=== PATIENT | female | born 1940 | race Caucasian/White ===

== ENCOUNTER 2020-10-03 13:12 | Inpatient (IN) | payer BC, MEDICARE ==
[~2020-10-03] VITALS: Ht 167.6 cm; Wt 67.6 kg
--- NOTE | 2020-10-03 13:12 | NUR ---
PT MARIJA 90 FROM [facility] C/O DIARRHEA STARTED YESTERDAY. PER PT SHE HAD 4 EPISODE OF WATERY STOOL TODAY. PT IS AAOX3, NOT IN RESPIRATORY DISTRESS, HOOKED TO DIVIDER OPERATOR, KEPT RESTED AND COMFORTABLE. WILL CONTINUE TO MONITOR.
--- NOTE | 2020-10-03 13:25 | NUR ---
IV LINE ESTABLISHED BLOOD DRAWN AND SENT TO LAB.
--- NOTE | 2020-10-03 13:27 | NUR ---
SEEN AND EXAMINED BY .
[2020-10-03] MEDS ORDERED: IV NS 0.9% 1,000 ML BAG IV ONE (13:30)
[2020-10-03] MEDS ORDERED: APIX5TAB4 PO (13:40)
[2020-10-03] MEDS ORDERED: QUET25TA PO (13:40)
[2020-10-03] MEDS ORDERED: LEVO50TA8 PO (13:40)
[2020-10-03] MEDS ORDERED: AMIO200T5 PO (13:40)
[2020-10-03 13:54] LABS: BASOPHILS # (AUTO) 0.1 /CMM (0.0-0.2); EOSINOPHILS % (AUTO) 2.5 % (0.0-6.0); HEMATOCRIT 48 % (33-45); HEMOGLOBIN 15.9 g/dL (11.5-14.8); LYMPHOCYTES # (AUTO) 1.6 /CMM (0.8-4.8); LYMPHOCYTES % (AUTO) 20.8 % (20.0-44.0); MEAN CORPUSCULAR HGB CONC 33 g/dl (31.0-36.0); MEAN CORPUSCULAR VOLUME 93 fL (82-100); MONOCYTES # (AUTO) 0.7 /CMM (0.1-1.30); MONOCYTES % (AUTO) 9.7 % (2.0-12.0); PLATELET COUNT (AUTO) 155 /CMM (150-450); RED BLOOD CELL COUNT(AUTO) 5.09 MIL/uL (4.0-5.2); WHITE BLOOD COUNT (AUTO) 7.5 K/uL (4.3-11.0)
--- NOTE | 2020-10-03 13:54 | NUR ---
PT IS WHEELED TO CT SCAN VIA [facility].
[2020-10-03 14:03] LABS: CALCIUM, SERUM 8.9 mg/dL (8.5-10.1); CARBON DIOXIDE 31 mmol/L (21-32); CHLORIDE 105 mmol/L (98-107); CREATININE 1.3 mg/dL (0.6-1.3); GLUCOSE 94 mg/dL (74-106); POTASSIUM 2.9 mmol/L (3.5-5.1); SODIUM SERUM 145 mmol/L (136-145); UREA NITROGEN, BLOOD 26 mg/dL (7-18)
[2020-10-03 14:09] LABS: ALANINE AMINOTRANSFERASE 23 U/L (12-78); ALBUMIN 3.6 g/dL (3.4-5.0); ALKALINE PHOSPHATASE 54 U/L (46-116); ASPARTATE AMINOTRANSFERASE 24 U/L (15-37); BILIRUBIN,DIRECT 0.6 mg/dL (0.0-0.2); BILIRUBIN,TOTAL 1.8 mg/dL (0.2-1.0); LIPASE 171 U/L (73-393); TOTAL PROTEIN, SERUM 6.7 g/dL (6.4-8.2)
[2020-10-03 15:06] LABS: BILIRUBIN,URINE NEGATIVE (NEGATIVE); COLOR,URINE YELLOW (YELLOW); LEUKOCYTE ESTERASE ,URINE NEGATIVE (NEGATIVE); NITRITE, URINE NEGATIVE (NEGATIVE); PH,URINE 6.5 (5.0-8.0); PROTEIN,URINE NEGATIVE (NEGATIVE); UGLUCOSE NEGATIVE (NEGATIVE)
[2020-10-03 15:18] LABS: BACTERIA,URINE None seen /HPF (None Seen); MUCUS,URINE Few /LPF (None Seen); SQUAMOUS EPITHELIAL CELL,UR 0-2 /HPF (None Seen); WBC,URINE 0-2 /HPF (0-3)
--- NOTE | 2020-10-03 15:22 | NUR ---
[facility] CALLED LABORER PRESTRESSED CONCRETE PAGED.
[2020-10-03] MEDS ORDERED: POTASSIUM CHLORIDE 20 MEQ TAB.PRT.SR PO ONE ×2 (15:30→16:30)
--- NOTE | 2020-10-03 16:16 | NUR ---
ROOM 119-2
[2020-10-03] MEDS: POTASSIUM CL. PREMIX PERIPHER. 50 ML IV SCH ×2 (16:25→17:20)
[2020-10-03] MEDS ORDERED: POTASSIUM CL. PREMIX PERIPHER. 100 ML ONE (16:27)
--- NOTE | 2020-10-03 16:50 | NUR ---
REPORT GIVEN TO JOSE MORALES FOR NATIVIDAD. WITH ONGOING POTASSIUM DRIP. TRANSFUSING WELL.
[2020-10-03] MEDS ORDERED: MAG HYDROX/AL HYDROX/SIMETH 30 ML UDC PO PRN (17:30)
[2020-10-03] MEDS ORDERED: ACETAMINOPHEN 325 MG TABLET PO PRN (17:30)
[2020-10-03] MEDS ORDERED: Z GUARD REMEDY 2 OZ OINT TP PRN (17:30)
[2020-10-03] MEDS ORDERED: MAGNESIUM HYDROXIDE 30 ML UDC PO PRN (17:30)
[2020-10-03] MEDS: IV NS 0.9% 1,000 ML IV PRN (18:16)
--- NOTE | 2020-10-03 18:39 | NUR ---
RN NOTE NOTIFIED DR. ACUNA OF PATIENT'S BP OF 178/69
[2020-10-03] MEDS: hydrALAZINE HCL 25 MG TABLET PO PRN (18:58)
--- NOTE | 2020-10-03 19:01 | NUR ---
RN NOTE PATIENT IS IN BED WITH HOB AT SEMI FOWLERS POSITION. PATIENT IS AOX4. CURRENTLY ON ROOM AIR WITH NO SIGNS OF SOB. RAC #18 AND LHAND #20 IS PATENT AND INTACT. SKIN IS INTACT. BED IS LOCKED IN THE LOWEST POSITION, 3 GUARD RAILS RAISED, CALL VERAS WITHIN REACH, AND ALL HOSPITAL SAFETY PRECAUTIONS ARE BEING FOLLOWED. PATIENT REMAINED STABLE FOR REMAINDER OF SHIFT. WILL ENDORSE TO DONKEY ENGINE FIRER/FIREMAN RN.
--- NOTE | 2020-10-03 19:45 | NUR ---
RN NOTE RECEIVED PT ALERT AND ORIENTED X 3. 94 % ON ROOM AIR. NO SIGNS OF DISTRESS NOTED. AFIB CONTROLLED WITH ARTIFACTS ON TELE MONITOR. PT DENIES ANY PAIN. PT WITH IV ACCESS ON RAC AND LHAND BOTH PATENT AND INTACT. FLUSHES WELL. ALL SAFETY MEASURES IN PLACE, BED LOCKED IN LOWEST POSITION. SIDE RAILS UP. CALL LIGHT WITHIN REACH, WILL CONTINUE TO MONITOR.
[2020-10-03 20:00] VITALS: BP 134/48
--- NOTE | 2020-10-03 20:30 | NUR ---
RN NOTE PT REFUSED TO HAVE IVF CONNECTED/RUNNING. IV ON LEFT HAND GOT PULLED OUT. NO SIGNS OF INFECTION NOTED.
[2020-10-03] MEDS ORDERED: ENOXAPARIN SODIUM 30 MG/0.3 ML DISP.SYRIN SQ SCH (21:00)
[2020-10-03] MEDS: QUETIAPINE FUMARATE 25 MG TABLET PO SCH (22:11)
[2020-10-03] MEDS: ZOLPIDEM TARTRATE 5 MG TABLET PO PRN (23:51)
[2020-10-04] VITALS: BP 143/57
--- NOTE | 2020-10-04 01:02 | NUR ---
RN NOTES PT REFUSED TO HAVE IV ACCESS, WANTS TO PULL IT OUT, EXPLAINED THE NEEDS OF IT. PER PT SHE DOESN'T WANT TO SLEEP WITH IT. REMOVED IV ACCESS. HVAC INSTALLATION TECHNICIAN JACOB MELENDREZ MADE AWARE.
[2020-10-04 04:00] VITALS: BP 138/61
[2020-10-04] MEDS: ONDANSETRON HCL/PF 4 MG/2 ML VIAL IVP PRN ×2 (06:46→17:35)
--- NOTE | 2020-10-04 06:56 | NUR ---
RN NOTE PT COMPLAINED OF NAUSEA. NEW IV LINE INSERTED ON RHAND 22G WITH GOOD BLOOD RETURN, FLUSHES WELL. PT ABLE TO MAKE NEEDS KNOWN, NO DIARRHEA NOTED DURING SHIFT. DENIES ANY PAIN, NO DISTRESS NOTED. WILL ENDORSE TO NEXT SHIFT NURSE FOR NATIVIDAD.
[2020-10-04 06:57] LABS: BASOPHILS # (AUTO) 0.1 /CMM (0.0-0.2); BASOPHILS % (AUTO) 1.2 % (0.0-2.0); EOSINOPHILS % (AUTO) 4.2 % (0.0-6.0); HEMATOCRIT 44 % (33-45); HEMOGLOBIN 14.6 g/dL (11.5-14.8); LYMPHOCYTES # (AUTO) 1.7 /CMM (0.8-4.8); MEAN CORPUSCULAR HGB CONC 33 g/dl (31.0-36.0); MEAN CORPUSCULAR VOLUME 93 fL (82-100); MONOCYTES # (AUTO) 0.6 /CMM (0.1-1.30); MONOCYTES % (AUTO) 9.7 % (2.0-12.0); NEUTROPHILS % (AUTO) 59.9 % (43.0-81.0); PLATELET COUNT (AUTO) 135 /CMM (150-450); RED BLOOD CELL COUNT(AUTO) 4.71 MIL/uL (4.0-5.2); WHITE BLOOD COUNT (AUTO) 6.6 K/uL (4.3-11.0)
[2020-10-04 07:31] LABS: CALCIUM, SERUM 8.5 mg/dL (8.5-10.1); CREATININE 1.1 mg/dL (0.6-1.3); MAGNESIUM 1.6 mg/dL (1.8-2.4); POTASSIUM 3.8 mmol/L (3.5-5.1)
[2020-10-04 07:36] LABS: THYROID STIMULATING HORMONE 2.621 uIU/mL (0.358-3.74)
--- NOTE | 2020-10-04 07:56 | NUR ---
PATIENT ON BED EVEN AND UNLABORED RESPIRATION, ALERT AND ORIENTED 3X, AFEBRILE AT THIS TIME, ABLE TO VERBALIZE NEEDS, IV SITE ON RIGHT HAND, G22 PATENT, EATING BREAKFAST ABLE TO FEED SELF, HOB ELEVATED, ON TELE SR - HR OF 105, NO PAIN COMPLAINTS AT THIS TIME, WILL CONTINUE TO MONITOR, NEEDS MET AND ANTICIPATED, BED WHEELS LOCK, CALL LIGHT WITHIN REACH.
[2020-10-04 08:00] VITALS: BP_SYST 139; BP_SYST 148; BP_SYST 149; BP_DIAS 61; BP_DIAS 62; BP_DIAS 68
--- NOTE | 2020-10-04 08:00 | NUR ---
MS RN NOTE PATIENT IN BED , ALL NEEDS ATTENDED ON RA ,NO SOB NOTED AT THIS TIME, ON TELE MONITOR ST 115 , REFUSED TO HAVE BREAKFAST DESPITE EXPLANATION TO HAVE FOOD, ON IVF ORDERED RT HAND IV HL INTACT AND FLUSHED WELL ,BED I9N LOWEST AND LOCKED POSITION ,CALL LIGHT WITHIN REACH, WILL CONT TO MONITOR CLOSELY
[2020-10-04] MEDS: LEVOTHYROXINE SODIUM 50 MCG TABLET PO SCH (08:07)
[2020-10-04] MEDS: PANTOPRAZOLE 40 MG TABLET.DR PO SCH (08:07)
[2020-10-04] MEDS: AMIODARONE HCL 200 MG TABLET PO SCH (08:08)
[2020-10-04] MEDS: APIXABAN 5 MG TABLET PO SCH ×2 (08:09→16:31)
[2020-10-04] MEDS: HYDROCODONE/APAP 5/325MG TABLET PO PRN ×3 (09:07→16:21)
[2020-10-04] MEDS: Magnesium 1GM/D5W 100ML PREMIX 100 ML IV SCH ×2 (09:10→11:41)
--- NOTE | 2020-10-04 11:34 | NUR ---
ms rn note lt upper arm mid line inserted as ordered, on mag infusing as ordered
--- NOTE | 2020-10-04 11:42 | NUR ---
ms rn note pt done able to ambulate with walker with mod assistance with pt
[2020-10-04 16:00] VITALS: BP_SYST 145; BP_SYST 150; BP_DIAS 63; BP_DIAS 68
--- NOTE | 2020-10-04 17:59 | NUR ---
RN MS NOTE PATIENT ON BED, HOB ELEVATED, EVEN AND UNLABORED RESPIRATION, ON IV FLUID 75CC/HR ON THE LEFT UPPER ARM MIDLINE, ZOFRAN GIVEN FOR COMPLAINS OF N&V, INCONTINENT ON BOWEL AND BLADDER, DUE MEDICATION GIVEN ORDERED, NEEDS MET AND ANTICIPATED, CALL LIGHT WITHIN REACH, BED WHEELS LOCK, WILL CONTINUE TO MONITOR RESIDENT, WILL ENDORSE TO NEXT SHIFT.
--- NOTE | 2020-10-04 19:20 | NUR ---
RN OPENING NOTE RECEIVED PATIENT IN BED RESTING ALERT ORIENTED X3 VERBALLY RESPONSIVE ON ROOM AIR O2:94% IV SITE IS ON LEFT UPPER ARM MIDLINE INTACT PATENT ON IV HYDRATION NS 75CC/HR INCONTINENT TO BOWEL/BLADDER SAFETY MEASURE IMPLEMENT CALL LIGHT WITHIN REACH,BED IN LOW POSITION AND LOCKED,BED ALARM IS ON CONTINUE TO MONITOR.
[2020-10-04] MEDS: hydrALAZINE HCL 25 MG TABLET PO PRN (19:36)
[2020-10-04 20:00] VITALS: BP 181/70
--- NOTE | 2020-10-04 20:12 | NUR ---
RN NOTE BP IS 181/70 HR IS 62 HYDRALAZINE PO PRN GIVEN CONTINUE TO MONITOR
[2020-10-04] MEDS: QUETIAPINE FUMARATE 25 MG TABLET PO SCH (21:23)
[2020-10-04] MEDS: ZOLPIDEM TARTRATE 5 MG TABLET PO PRN (23:01)
[2020-10-05] VITALS: BP 145/68
[2020-10-05] MEDS: IV NS 0.9% 1,000 ML IV PRN (02:45)
[2020-10-05 04:00] VITALS: BP 141/61
[2020-10-05 06:33] LABS: BASOPHILS % (AUTO) 0.6 % (0.0-2.0); HEMATOCRIT 42 % (33-45); LYMPHOCYTES # (AUTO) 1.8 /CMM (0.8-4.8); LYMPHOCYTES % (AUTO) 24.3 % (20.0-44.0); MEAN CORPUSCULAR HGB CONC 34 g/dl (31.0-36.0); MEAN CORPUSCULAR VOLUME 93 fL (82-100); MONOCYTES # (AUTO) 0.8 /CMM (0.1-1.30); MONOCYTES % (AUTO) 10.5 % (2.0-12.0); NEUTROPHILS # (AUTO) 4.5 /CMM (1.8-8.9); NEUTROPHILS % (AUTO) 59.6 % (43.0-81.0); PLATELET COUNT (AUTO) 146 /CMM (150-450); RED BLOOD CELL COUNT(AUTO) 4.51 MIL/uL (4.0-5.2); WHITE BLOOD COUNT (AUTO) 7.6 K/uL (4.3-11.0)
[2020-10-05] MEDS: ONDANSETRON HCL/PF 4 MG/2 ML VIAL IVP PRN ×2 (06:57→14:07)
--- NOTE | 2020-10-05 07:08 | NUR ---
RN CLOSING NOTE PATIENT REMAINS ALERT ORIENTED X3 VERBALLY RESPONSIVE NO SOB NOT ACUTE DISTRESS NOTED ON ROOM AIR O2:925 ALL DUE MEDS GIVEN MD ORDERED KEEP CLEAN AND DRY ALL THE TIME,ALL NEEDS MET ENDORSE NEXT COMING SHIFT FOR CONTINUATION OF CARE.
--- NOTE | 2020-10-05 07:20 | NUR ---
RN OPENING NOTE RECEIVED REPORT FROM PM NURSE.PATIENT IN BED . ALERT ORIENTED X3 VERBALLY RESPONSIVE ON ROOM AIR NO SOB NO DISTRESS NOTED.IV SITE IS ON LEFT UPPER ARM MIDLINE INTACT PATENT ON IV HYDRATION NS 75CC/HR. PATIENT C/O NAUSEA.PRN ZOFRAN GIVEN BY PM NURSE. CALL LIGHT WITHIN REACH,BED IN LOW POSITION AND LOCKED,BED ALARM IS ON .WILL CONTINUE TO MONITOR.
[2020-10-05] MEDS: LEVOTHYROXINE SODIUM 50 MCG TABLET PO SCH (07:54)
[2020-10-05] MEDS: PANTOPRAZOLE 40 MG TABLET.DR PO SCH (07:54)
[2020-10-05 08:00] VITALS: BP 167/76
[2020-10-05] MEDS: hydrALAZINE HCL 25 MG TABLET PO PRN ×2 (08:43→17:07)
[2020-10-05] MEDS: APIXABAN 5 MG TABLET PO SCH ×2 (08:43→16:17)
[2020-10-05 09:08] LABS: CALCIUM, SERUM 7.9 mg/dL (8.5-10.1); CREATININE 1.1 mg/dL (0.6-1.3); MAGNESIUM 1.8 mg/dL (1.8-2.4); PHOSPHORUS 3.9 mg/dL (2.5-4.9); POTASSIUM 3.7 mmol/L (3.5-5.1)
[2020-10-05] MEDS: AMIODARONE HCL 200 MG TABLET PO SCH (10:24)
[2020-10-05] MEDS: AMLODIPINE BESYLATE 5 MG TABLET PO SCH (10:24)
[2020-10-05] MEDS: HYDROCODONE/APAP 5/325MG TABLET PO PRN ×2 (12:03→21:55)
--- NOTE | 2020-10-05 14:46 | NUR ---
RN NOTE seen the patient,updated about patient condition with echo result. patient said she is not feeling good and requesting extension of discharge.patient still nauseated.prn medication given.refused to eat lunch. aware.will continue to monitor.
[2020-10-05 16:00] VITALS: BP 164/65
[2020-10-05 18:08] VITALS: BP 132/63
--- NOTE | 2020-10-05 19:14 | NUR ---
RN CLOSING NOTE PATIENT IN BED.AXOX4.IN STABLE CONDITION .SAFETY AND ASPIRATION MEASURES IN PLACE.ENDORSED TO PM NURSE FOR NATIVIDAD.
--- NOTE | 2020-10-05 19:20 | NUR ---
RN OPENING NOTE RECEIVED PATIENT IN BED RESTING ALERT ORIENTED X3 VERBALLY RESPONSIVE ON ROOM AIR O2:93% IV SITE IS ON LEFT UPPER ARM MIDLINE INTACT PATENT INCONTINENT TO BOWEL/BLADDER SAFETY MEASURE IMPLEMENT BED IN LOW POSITION AND LOCKED,CALL LIGHT WITHIN REACH,CONTINUE TO MONITOR.
[2020-10-05 20:00] VITALS: BP 152/62
[2020-10-05] MEDS: QUETIAPINE FUMARATE 25 MG TABLET PO SCH (21:21)
[2020-10-05] MEDS: ZOLPIDEM TARTRATE 5 MG TABLET PO PRN (23:06)
--- NOTE | 2020-10-05 23:13 | NUR ---
RN NOTE GAVE REPORT TO DANIELA GARCIA FOR CONTINUATION OF CARE
[2020-10-06 05:21] VITALS: BP 136/53
[2020-10-06 06:42] LABS: BASOPHILS # (AUTO) 0.1 /CMM (0.0-0.2); BASOPHILS % (AUTO) 1.1 % (0.0-2.0); EOSINOPHILS % (AUTO) 5.2 % (0.0-6.0); HEMATOCRIT 45 % (33-45); HEMOGLOBIN 15.2 g/dL (11.5-14.8); LYMPHOCYTES # (AUTO) 2.1 /CMM (0.8-4.8); LYMPHOCYTES % (AUTO) 21.4 % (20.0-44.0); MEAN CORPUSCULAR HGB CONC 34 g/dl (31.0-36.0); MEAN CORPUSCULAR VOLUME 93 fL (82-100); MONOCYTES # (AUTO) 0.9 /CMM (0.1-1.30); MONOCYTES % (AUTO) 8.6 % (2.0-12.0); NEUTROPHILS # (AUTO) 6.4 /CMM (1.8-8.9); NEUTROPHILS % (AUTO) 63.7 % (43.0-81.0); PLATELET COUNT (AUTO) 145 /CMM (150-450); RED BLOOD CELL COUNT(AUTO) 4.86 MIL/uL (4.0-5.2)
--- NOTE | 2020-10-06 06:47 | NUR ---
MS RN NOTES PATIENT IN BED RESTING ALERT ORIENTED X3 VERBALLY RESPONSIVE ON ROOM AIR O2 95% IV SITE IS ON LEFT UPPER ARM MIDLINE INTACT PATENT FLUSHING WELL. INCONTINENT TO BOWEL/BLADDER. NO PAIN OR DISCOMFORT VISIBLE OR REPORTED AT THIS TIME. ALL NEEDS MET THROUGHOUT THE SHIFT. SAFETY MEASURE IMPLEMENT BED IN LOW POSITION AND LOCKED,CALL LIGHT WITHIN REACH, WILL ENDORSE CARE TO DAY SHIFT NURSE.
[2020-10-06 06:51] LABS: CALCIUM, SERUM 8.8 mg/dL (8.5-10.1); CREATININE 1.1 mg/dL (0.6-1.3); MAGNESIUM 1.8 mg/dL (1.8-2.4); PHOSPHORUS 4.3 mg/dL (2.5-4.9); POTASSIUM 3.6 mmol/L (3.5-5.1)
[2020-10-06] MEDS: PANTOPRAZOLE 40 MG TABLET.DR PO SCH (07:43)
[2020-10-06] MEDS: ONDANSETRON HCL/PF 4 MG/2 ML VIAL IVP PRN ×2 (07:44→12:51)
[2020-10-06 08:00] VITALS: BP 150/66
--- NOTE | 2020-10-06 08:06 | NUR ---
MS RN NOTE PATIENT IN BED ALERT ,ORIENTED X3 , ON RA NO SOB NOTED AT THIS TIME , LT UPPER ARM MID LINE IN PLACE AND FLUSHED WELL ,C\O NAUSEA ZOFRAN IVP GIVEN ORDERED, BED IN LOWEST AND LOCKED POSITION , CALL LIGHT WITHIN REACH , PLAN OF CARE DISCUSSED WITH PATIENT, SAFETY MEASURE OBSERVED
[2020-10-06] MEDS: AMLODIPINE BESYLATE 5 MG TABLET PO SCH (08:14)
[2020-10-06] MEDS: AMIODARONE HCL 200 MG TABLET PO SCH (08:14)
[2020-10-06] MEDS: APIXABAN 5 MG TABLET PO SCH ×2 (08:14→16:13)
[2020-10-06] MEDS: LEVOTHYROXINE SODIUM 50 MCG TABLET PO SCH (08:14)
[2020-10-06 09:00] VITALS: BP 150/66
--- NOTE | 2020-10-06 11:00 | NUR ---
MS RN NOTE PER AMINA PAGAN TO D\C HOME , ORDER CARRIED OUR CALLED TO QUALITY CONTROL INSPECTOR HEADING NOTIFIED INFORM THAT PATIENT USING A WALKER AT HOME AND ABLE TO AMBULATE WITH ASSISTANCE AROUND ROOM
[2020-10-06] MEDS: HYDROCODONE/APAP 5/325MG TABLET PO PRN (12:24)
--- NOTE | 2020-10-06 12:53 | NUR ---
MS RN NOTE ZOFRAN IV GIVEN ORDERED AMINA LEVY AT BEDSIDE UPDATED PATIENT CONDITION NOTIFIED THAT DID NOT EAT BREAKFASTED AND C\O NAUSEA BEFORE IN MORNING ,
[2020-10-06] MEDS ORDERED: ONDA4TAB11 PO (13:20)
[2020-10-06] MEDS ORDERED: OMEP40CA13 PO (13:20)
--- NOTE | 2020-10-06 15:06 | NUR ---
MS RN NOTE DISCHARGE INSTRUCTION GIVEN ,UNDERSTOOD EXPLAINED HOW TO TAKE HOME MEDS AND NEW PX AND POSSIBLE SIDE EFFECTS ,CALLED TO PHARMACY SPOKE WITH JEFF ,STATED THAT MEDICATION WILL BE DELIVERED SOON , MID LINE WILL BE REMOVED, WILL BE DISCHARGE BY AMBIANCE
[2020-10-06 16:00] VITALS: BP 136/66
--- NOTE | 2020-10-06 18:43 | NUR ---
ms rn note patient alert awake , no sob noted ,no discomfort awaiting for ambulance still awaiting for 1800 not in distress ,mid line is removed will cont to monitor closely Addendum: 10/06/20 at 1902 by QIANA RUCKER RN called chris case resource manager about ambulance notified that ambulance is not here yet ,stated will come soon
[2020-10-06 20:00] VITALS: BP 147/83
--- NOTE | 2020-10-06 20:00 | NUR ---
RN NOTE RECEIVED PT IN BED SITTING , A/A/O X3, PT IS ON RA SATING 97%. SAFETY MEASURES IN PLACE.
--- NOTE | 2020-10-06 21:10 | NUR ---
RN NOTE PT PICKED UP BY EMT AT [id number] IN STABLE CONDITION.
== END 2020-10-06 22:01 | disposition home or self-care (01) | DRG 391 ==
LOC: ER 13:16 → TELE1 16:24 → MEDSG1 10-04 09:04
PROVIDERS: ADMIT Student in an Organized Health Care Education/Training Program; ATTEND Nurse Practitioner Family
PROC: 05H633Z Insertion of Infusion Device into Left Subclavian Vein, Percutaneous Approach (ICD-10-PCS; principal; 2020-10-04)
PROC: B547ZZA Ultrasonography of Left Subclavian Vein, Guidance (ICD-10-PCS; 2020-10-04)
DX: A08.4 Viral intestinal infection, unspecified (principal); N17.0 Acute kidney failure with tubular necrosis; D68.59 Other primary thrombophilia; R55 Syncope and collapse; K29.70 Gastritis, unspecified, without bleeding; E86.0 Dehydration; E87.6 Hypokalemia; I48.91 Unspecified atrial fibrillation; Z90.49 Acquired absence of other specified parts of digestive tract; K43.9 Ventral hernia without obstruction or gangrene; I10 Essential (primary) hypertension; E03.9 Hypothyroidism, unspecified; K59.00 Constipation, unspecified; Z79.01 Long term (current) use of anticoagulants; F29 Unspecified psychosis not due to a substance or known physiological condition; K57.30 Diverticulosis of large intestine without perforation or abscess without bleeding; Z79.890 Hormone replacement therapy; Z95.0 Presence of cardiac pacemaker; Z20.822 Contact with and (suspected) exposure to COVID-19
CPT/HCPCS: 36410; 36415; 71045-TC; 80048-TC; 80076-TC; 81001; 83690-TC; 83735-TC; 84100-TC; 84443-TC; 84484-TC; 85025-TC; 87081-TC; 93307-TC; 97116-TC; 97530-TC; G0378; J2405; J3475; J3480; J7030; J7050; U0003